=== PATIENT | female | born 1975 | race Caucasian/White ===

== ENCOUNTER 2016-12-16 23:06 | Emergency (ER) | payer OTHER ==
[~2016-12-16] VITALS: Ht 162.6 cm; Wt 63.5 kg
[2016-12-16 23:22] VITALS: Ht 162.6 cm; Wt 63.5 kg
--- NOTE | 2016-12-17 03:20 | ERD ---
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 Patient denies any dyspnea on exertion or dizzy on lying down. Patient denies any dizziness. Patient denies any fever or chills. Patient does admit to be having cough for the last month. Patient denies any wheezing. Patient denies taking any medications to help with symptoms and states that she has been having problems sleeping lately. ROS All systems reviewed and are negative except as per history of present illness. Medications Home Meds Reported Medications [none] Unknown Strength No Conflict Check 12/17/16 Allergies Allergies: Coded Allergies: No Known Allergy (Unverified , 12/16/16) PMhx/Soc History of Surgery: No Anesthesia Reaction: No Hx Neurological Disorder: No Hx Respiratory Disorders: No Hx Cardiac Disorders: No Hx Psychiatric Problems: No Hx Miscellaneous Medical Probl: No Hx Alcohol Use: Yes (OCASSIONALLY) Hx Substance Use: No Hx Tobacco Use: Yes Smoking Status: Light tobacco smoker FmHx Family History: diabetes, other (HTN) Physical Exam Vitals Vital Signs Date Time Temp Pulse Resp B/P Pulse Ox O2 Delivery O2 Flow Rate FiO2 12/16/16 23:22 98.0 88 18 157/71 99 Physical Exam GENERAL: The patient is well developed and appropriate for usual state of health, in no apparent distress. CHEST: Clear to auscultation bilaterally. There are no rales, wheezes or rhonchi. HEART: Regular rate and rhythm. No murmurs, clicks, rubs or gallops. No S3 or S4. ABDOMEN: Soft, nontender and nondistended. Good bowel sounds. No rebound or guarding. No gross peritonitis. No gross organomegaly or masses. No Pereira sign or McBurney point tenderness. BACK: No midline or flank tenderness. EXTREMITIES: Equal pulses bilaterally. There is no peripheral clubbing, cyanosis or edema. No focal swelling or erythema. Full range of motion. Grossly neurovascularly intact. NEURO: Alert and oriented. Cranial nerves 2-12 intact. Motor strength in all 4 extremities with 5/5 strength. Sensation grossly intact. Normal speech and gait. SKIN: There is no apparent rash or petechia. The skin is warm and dry. HEMATOLOGIC AND LYMPHATIC: There is no evidence of excessive bruising or lymphedema. No gross cervical, axillary, or inguinal lymphadenopathy. Result Diagram: 12/17/1631412/17/16314 Results 24 hrs Laboratory Tests Test 12/17/16 03:15 White Blood Count 9.510^3/ul Red Blood Count 3.5810^6/ul Hemoglobin 11.9g/dl Hematocrit 35.0% Mean Corpuscular Volume 97.8fl Mean Corpuscular Hemoglobin 33.2pg Mean Corpuscular Hemoglobin Concent 34.0g/dl Red Cell Distribution Width 13.2% Platelet Count 58361^3/UL Mean Platelet Volume 10.5fl Neutrophils % 40.2% Lymphocytes % 47.4% Monocytes % 7.5% Eosinophils % 3.7% Basophils % 1.0% Nucleated Red Blood Cells % 0.0/100WBC Neutrophils # 3.810^3/ul Lymphocytes # 4.510^3/ul Monocytes # 0.710^3/ul Eosinophils # 0.410^3/ul Basophils # 0.110^3/ul Nucleated Red Blood Cells # 0.010^3/ul Sodium Level 142mmol/L Potassium Level 4.1mmol/L Chloride Level 104mmol/L Carbon Dioxide Level 27mmol/L Anion Gap 15 Blood Urea Nitrogen 8mg/dl Creatinine 0.61mg/dl Glucose Level 79mg/dl Calcium Level 9.8mg/dl Troponin I < 0.012ng/ml EKG was done, read by me and is normal sinus rhythm at a rate of 83, right axis deviation noted, there is no ST changes or changes in the EKG that indicates any cardiac emergencies at this time. Patient's EKG was also reviewed by Dr. Tamez. Impression: no acute findings on EKG Heart Score: 1 -indicates a risk of 1.6% for reaching a MACE, and therefore supports a policy of early discharge. History - slightly suspicions 0 ECG - normal 0 Age: <45 0 Risk Factors 1 Troponin <normal 0 PROCEDURE: XR Chest. CLINICAL INDICATION: Chest pain TECHNIQUE: AP Portable chest. COMPARISON: 07/17/2014 FINDINGS: The cardiomediastinal silhouette is normal. The lungs are clear. The osseous structures are unremarkable. IMPRESSION: No acute findings. RPTAT: HIKT .Zaid Jesus MD, Date Time Electronically viewed and signed by .Zaid Jesus MD, on 12/17/2016 04:09 .T/ CC: TERI HARE ELECTRICAL TEST TECHNICIAN Procedures/MDM Medical Decision Making: Chest pain nonspecific at this time, can be musculoskeletal pain, can be anxiety, can be from the chronic cough. There is low suspicion for cardiopulmonary emergencies at this time. Patient has low risk factors. EKG is normal, there is no changes in the EKG that indicates cardiac emergencies. Chest X-ray does not show cardiopulmonary emergencies at this time. There is low suspicion for aortic aneurysm, myocardial infarction, pneumothorax, pleural effusion, pulmonary embolism, or any other cardiopulmonary emergencies at this time. Cardiac markers are normal. Heart score is 1, low risk for acute coronary syndrome. Outpatient management and evaluation is appropriate, patient was advised to follow-up with primary care doctor in 1-2 days for reevaluation of symptoms, possible cardiology evaluation. Patient will be given prescription for ibuprofen for mild-to- moderate pain, tramadol for severe pain. Return to emergency department for any worsening symptoms. Dispostion: Home. Stable Disclaimer: Inadvertent spelling and grammatical errors are likely due to EHR/ dictation software use and do not reflect on the overall quality of patient care. Also, please note that the electronic time recorded on this note does not necessarily reflect the actual time of the patient encounter. Departure Diagnosis: Primary Impression: Atypical chest pain Condition: Stable Patient Instructions: Chest Pain, Uncertain Cause Additional Instructions: patient was advised to follow-up with primary care doctor in 1-2 days for reevaluation of symptoms, possible cardiology evaluation. Patient will be given prescription for ibuprofen for [id number] pain, tramadol for severe pain. Return to emergency department for any worsening symptoms. TERI HARE NP Dec 17, 2016 03:20
--- NOTE | 2016-12-17 04:09 | RADRPT ---
PROCEDURE: XR Chest. CLINICAL INDICATION: Chest pain TECHNIQUE: AP Portable chest. COMPARISON: 07/17/2014 FINDINGS: The cardiomediastinal silhouette is normal. The lungs are clear. The osseous structures are unrema rkable. IMPRESSION: No acute findings. RPTAT: HIKT .Zaid Jesus MD, MD Date Time Electronically viewed and signed by .Zaid Jesus MD, on 12/17/2016 04:09 .T/
[2016-12-17] MEDS ORDERED: TRAM50TA2 PO (05:02)
[2016-12-17] MEDS ORDERED: IBUP-1542 PO (05:02)
== END 2016-12-17 05:17 | disposition home or self-care (01) ==
LOC: FTE 23:06
DX: R07.89 Other chest pain (principal); F17.210 Nicotine dependence, cigarettes, uncomplicated
CPT/HCPCS: 36415; 71010; 80048; 84484; 85025; Z7502

== ENCOUNTER 2018-06-29 10:56 | Emergency (ER) | payer SELFPAY ==
[~2018-06-29] VITALS: Ht 165.1 cm; Wt 62.0 kg
[~2018-06-29 10:56] MED LIST: IBUP-1542 PO; TRAM50TA2 PO
[2018-06-29 11:02] VITALS: BP 175/76; PULSE 109; RESP 18; Ht 165.1 cm; Wt 62.0 kg
== END 2018-06-29 23:55 | disposition left against medical advice (07) ==
LOC: E/R 10:56
DX: Z53.21 Procedure and treatment not carried out due to patient leaving prior to being seen by health care provider (principal)
CPT/HCPCS: 93005